=== PATIENT | female | born 1935 | race Caucasian/White ===

== ENCOUNTER → 2017-12-15 | Outpatient (CLI) | payer MEDICARE ==
[~2017-12-15] MED LIST: ACTONEL150 MG PO; ADULT LOW DOSE81 MG PO; AMITRIPTYLINE H10 M1 PO; ANASTROZOLE1 MG PO; ARIMIDEX PO; CRESTOR10 MG PO; KLOR-CON 1010 MEQ PO; MULTIVITAMIN PO; PREDNISONE 5 MG5 MG PO; SEE COMMENTS; SYNTHROID125 MCG PO; TRIAMTERENE-HC1 EAC1 PO
== END ==
LOC: M.WC 13:00
DX: T81.89XA Other complications of procedures, not elsewhere classified, initial encounter (principal); I87.2 Venous insufficiency (chronic) (peripheral); I10 Essential (primary) hypertension; I48.91 Unspecified atrial fibrillation; E03.9 Hypothyroidism, unspecified; G47.30 Sleep apnea, unspecified; Z96.611 Presence of right artificial shoulder joint; Z96.653 Presence of artificial knee joint, bilateral; Z89.421 Acquired absence of other right toe(s); Y92.89 Other specified places as the place of occurrence of the external cause; Y83.8 Other surgical procedures as the cause of abnormal reaction of the patient, or of later complication, without mention of misadventure at the time of the procedure

== ENCOUNTER → 2017-12-22 | Outpatient (CLI) | payer MEDICARE | LOC: M.WC 02:58 | DX: T81.89XD Other complications of procedures, not elsewhere classified, subsequent encounter (principal); I87.2 Venous insufficiency (chronic) (peripheral); I10 Essential (primary) hypertension; E03.9 Hypothyroidism, unspecified; I48.91 Unspecified atrial fibrillation; Z89.421 Acquired absence of other right toe(s); Y83.8 Other surgical procedures as the cause of abnormal reaction of the patient, or of later complication, without mention of misadventure at the time of the procedure ==

== ENCOUNTER → 2018-03-04 | Outpatient (CLI) | payer MEDICARE | LOC: M.WC 09:30 | DX: S41.112A Laceration without foreign body of left upper arm, initial encounter (principal); I10 Essential (primary) hypertension; I87.2 Venous insufficiency (chronic) (peripheral); E03.9 Hypothyroidism, unspecified; G47.30 Sleep apnea, unspecified; G62.9 Polyneuropathy, unspecified; I48.91 Unspecified atrial fibrillation; Z98.42 Cataract extraction status, left eye; Z98.41 Cataract extraction status, right eye; Z96.611 Presence of right artificial shoulder joint; Z89.421 Acquired absence of other right toe(s); Z96.653 Presence of artificial knee joint, bilateral; X58.XXXA Exposure to other specified factors, initial encounter; Y93.89 Activity, other specified; Y92.89 Other specified places as the place of occurrence of the external cause; Y99.8 Other external cause status ==

== ENCOUNTER → 2019-07-28 | Outpatient (CLI) | payer MEDICARE | LOC: M.WC 09:48 | DX: L97.822 Non-pressure chronic ulcer of other part of left lower leg with fat layer exposed (principal); I89.0 Lymphedema, not elsewhere classified; I87.2 Venous insufficiency (chronic) (peripheral); I48.20 Chronic atrial fibrillation, unspecified; I11.0 Hypertensive heart disease with heart failure; I50.9 Heart failure, unspecified; E03.9 Hypothyroidism, unspecified; G47.30 Sleep apnea, unspecified; G62.9 Polyneuropathy, unspecified; M35.3 Polymyalgia rheumatica; Z90.49 Acquired absence of other specified parts of digestive tract; Z79.82 Long term (current) use of aspirin; Z98.41 Cataract extraction status, right eye; Z98.42 Cataract extraction status, left eye; Z96.653 Presence of artificial knee joint, bilateral; Z96.611 Presence of right artificial shoulder joint; Z89.421 Acquired absence of other right toe(s) ==

== ENCOUNTER → 2019-08-04 | Outpatient (CLI) | payer MEDICARE | LOC: M.WC 05:07 | DX: L97.822 Non-pressure chronic ulcer of other part of left lower leg with fat layer exposed (principal); E03.9 Hypothyroidism, unspecified; G47.30 Sleep apnea, unspecified; G62.9 Polyneuropathy, unspecified; I87.2 Venous insufficiency (chronic) (peripheral); I89.0 Lymphedema, not elsewhere classified; I48.91 Unspecified atrial fibrillation; I11.0 Hypertensive heart disease with heart failure; I50.9 Heart failure, unspecified; I48.20 Chronic atrial fibrillation, unspecified; M35.3 Polymyalgia rheumatica; Z98.41 Cataract extraction status, right eye; Z98.42 Cataract extraction status, left eye; Z96.653 Presence of artificial knee joint, bilateral; Z96.611 Presence of right artificial shoulder joint ==

== ENCOUNTER → 2019-08-12 | Outpatient (CLI) | payer MEDICARE | LOC: M.WC 05:12 | DX: L97.822 Non-pressure chronic ulcer of other part of left lower leg with fat layer exposed (principal); I87.2 Venous insufficiency (chronic) (peripheral); I89.0 Lymphedema, not elsewhere classified; I48.91 Unspecified atrial fibrillation; I11.0 Hypertensive heart disease with heart failure; I50.9 Heart failure, unspecified; I48.20 Chronic atrial fibrillation, unspecified; E03.9 Hypothyroidism, unspecified; G47.30 Sleep apnea, unspecified; G62.9 Polyneuropathy, unspecified; H40.9 Unspecified glaucoma; M35.3 Polymyalgia rheumatica; Z98.41 Cataract extraction status, right eye; Z98.42 Cataract extraction status, left eye; Z96.653 Presence of artificial knee joint, bilateral; Z89.421 Acquired absence of other right toe(s); Z96.611 Presence of right artificial shoulder joint ==

== ENCOUNTER → 2019-08-22 | Outpatient (CLI) | payer MEDICARE | LOC: M.WC 01:35 | DX: I83.028 Varicose veins of left lower extremity with ulcer other part of lower leg (principal); L97.822 Non-pressure chronic ulcer of other part of left lower leg with fat layer exposed; I89.0 Lymphedema, not elsewhere classified; I87.2 Venous insufficiency (chronic) (peripheral); I11.0 Hypertensive heart disease with heart failure; I50.9 Heart failure, unspecified; E03.9 Hypothyroidism, unspecified; G47.30 Sleep apnea, unspecified; G62.9 Polyneuropathy, unspecified; I48.20 Chronic atrial fibrillation, unspecified; M35.3 Polymyalgia rheumatica; Z98.41 Cataract extraction status, right eye; Z98.42 Cataract extraction status, left eye; Z96.653 Presence of artificial knee joint, bilateral; Z96.611 Presence of right artificial shoulder joint; Z89.421 Acquired absence of other right toe(s) ==

== ENCOUNTER → 2019-08-26 | Outpatient (CLI) | payer MEDICARE | LOC: M.WC 05:51 | DX: I83.028 Varicose veins of left lower extremity with ulcer other part of lower leg (principal); L97.822 Non-pressure chronic ulcer of other part of left lower leg with fat layer exposed; I89.0 Lymphedema, not elsewhere classified; G47.30 Sleep apnea, unspecified; G62.9 Polyneuropathy, unspecified; I11.0 Hypertensive heart disease with heart failure; I50.9 Heart failure, unspecified; I48.20 Chronic atrial fibrillation, unspecified; E03.9 Hypothyroidism, unspecified; M35.3 Polymyalgia rheumatica; Z98.41 Cataract extraction status, right eye; Z98.42 Cataract extraction status, left eye; Z96.653 Presence of artificial knee joint, bilateral; Z96.611 Presence of right artificial shoulder joint; Z89.421 Acquired absence of other right toe(s) ==

== ENCOUNTER → 2019-09-02 | Outpatient (CLI) | payer MEDICARE | LOC: M.WC 05:13 | DX: I83.028 Varicose veins of left lower extremity with ulcer other part of lower leg (principal); L97.822 Non-pressure chronic ulcer of other part of left lower leg with fat layer exposed; I89.0 Lymphedema, not elsewhere classified; I48.20 Chronic atrial fibrillation, unspecified; I11.0 Hypertensive heart disease with heart failure; I50.9 Heart failure, unspecified; E03.9 Hypothyroidism, unspecified; G47.30 Sleep apnea, unspecified; G62.9 Polyneuropathy, unspecified; M35.3 Polymyalgia rheumatica; Z98.41 Cataract extraction status, right eye; Z98.42 Cataract extraction status, left eye; Z96.653 Presence of artificial knee joint, bilateral; Z96.611 Presence of right artificial shoulder joint; Z89.421 Acquired absence of other right toe(s) ==

== ENCOUNTER → 2019-09-09 | Outpatient (CLI) | payer MEDICARE | LOC: M.WC 04:57 | DX: I83.028 Varicose veins of left lower extremity with ulcer other part of lower leg (principal); L97.822 Non-pressure chronic ulcer of other part of left lower leg with fat layer exposed; I89.0 Lymphedema, not elsewhere classified; E03.9 Hypothyroidism, unspecified; G47.30 Sleep apnea, unspecified; G62.9 Polyneuropathy, unspecified; I11.0 Hypertensive heart disease with heart failure; I50.9 Heart failure, unspecified; M35.3 Polymyalgia rheumatica; I48.20 Chronic atrial fibrillation, unspecified; Z98.41 Cataract extraction status, right eye; Z98.42 Cataract extraction status, left eye; Z96.653 Presence of artificial knee joint, bilateral; Z96.611 Presence of right artificial shoulder joint; Z89.421 Acquired absence of other right toe(s) ==

== ENCOUNTER → 2019-09-16 | Outpatient (CLI) | payer MEDICARE | LOC: M.WC 11:00 | DX: I83.028 Varicose veins of left lower extremity with ulcer other part of lower leg (principal); L97.822 Non-pressure chronic ulcer of other part of left lower leg with fat layer exposed; I89.0 Lymphedema, not elsewhere classified; I11.0 Hypertensive heart disease with heart failure; I50.9 Heart failure, unspecified; I48.20 Chronic atrial fibrillation, unspecified; E03.9 Hypothyroidism, unspecified; G62.9 Polyneuropathy, unspecified; M35.3 Polymyalgia rheumatica; Z98.41 Cataract extraction status, right eye; Z98.42 Cataract extraction status, left eye; Z96.643 Presence of artificial hip joint, bilateral; Z96.611 Presence of right artificial shoulder joint; Z89.421 Acquired absence of other right toe(s) ==

== ENCOUNTER → 2019-09-23 | Outpatient (CLI) | payer MEDICARE | LOC: M.WC 10:08 | DX: I83.028 Varicose veins of left lower extremity with ulcer other part of lower leg (principal); L97.822 Non-pressure chronic ulcer of other part of left lower leg with fat layer exposed; I87.2 Venous insufficiency (chronic) (peripheral); I89.0 Lymphedema, not elsewhere classified; G62.9 Polyneuropathy, unspecified; E03.9 Hypothyroidism, unspecified; I11.0 Hypertensive heart disease with heart failure; I50.9 Heart failure, unspecified; I48.91 Unspecified atrial fibrillation; I48.20 Chronic atrial fibrillation, unspecified; H26.9 Unspecified cataract; G47.30 Sleep apnea, unspecified; Z98.41 Cataract extraction status, right eye; Z98.42 Cataract extraction status, left eye; Z96.653 Presence of artificial knee joint, bilateral; Z89.421 Acquired absence of other right toe(s) ==

== ENCOUNTER → 2019-09-30 | Outpatient (CLI) | payer MEDICARE | LOC: M.WC 04:09 | DX: I83.028 Varicose veins of left lower extremity with ulcer other part of lower leg (principal); L97.822 Non-pressure chronic ulcer of other part of left lower leg with fat layer exposed; L03.116 Cellulitis of left lower limb; I89.0 Lymphedema, not elsewhere classified; I87.2 Venous insufficiency (chronic) (peripheral); I11.0 Hypertensive heart disease with heart failure; I50.9 Heart failure, unspecified; I48.20 Chronic atrial fibrillation, unspecified; E03.9 Hypothyroidism, unspecified; G47.30 Sleep apnea, unspecified; G62.9 Polyneuropathy, unspecified; M35.3 Polymyalgia rheumatica; Z98.41 Cataract extraction status, right eye; Z98.42 Cataract extraction status, left eye; Z96.653 Presence of artificial knee joint, bilateral; Z89.421 Acquired absence of other right toe(s); Z96.611 Presence of right artificial shoulder joint ==

== ENCOUNTER → 2019-10-06 | Outpatient (CLI) | payer MEDICARE | LOC: M.WC 13:30 | DX: I83.028 Varicose veins of left lower extremity with ulcer other part of lower leg (principal); L97.822 Non-pressure chronic ulcer of other part of left lower leg with fat layer exposed; L03.116 Cellulitis of left lower limb; I89.0 Lymphedema, not elsewhere classified; E03.9 Hypothyroidism, unspecified; G47.30 Sleep apnea, unspecified; G62.9 Polyneuropathy, unspecified; I11.0 Hypertensive heart disease with heart failure; I50.9 Heart failure, unspecified; I48.20 Chronic atrial fibrillation, unspecified; M35.3 Polymyalgia rheumatica; Z98.42 Cataract extraction status, left eye; Z96.653 Presence of artificial knee joint, bilateral; Z96.611 Presence of right artificial shoulder joint; Z89.421 Acquired absence of other right toe(s); Z98.41 Cataract extraction status, right eye ==

== ENCOUNTER → 2019-10-17 | Outpatient (CLI) | payer MEDICARE | LOC: M.WC 01:56 | DX: I83.028 Varicose veins of left lower extremity with ulcer other part of lower leg (principal); L97.822 Non-pressure chronic ulcer of other part of left lower leg with fat layer exposed; L03.116 Cellulitis of left lower limb; E03.9 Hypothyroidism, unspecified; G47.30 Sleep apnea, unspecified; G62.9 Polyneuropathy, unspecified; I89.0 Lymphedema, not elsewhere classified; I11.0 Hypertensive heart disease with heart failure; I50.9 Heart failure, unspecified; I48.20 Chronic atrial fibrillation, unspecified; M35.3 Polymyalgia rheumatica; Z98.41 Cataract extraction status, right eye; Z98.42 Cataract extraction status, left eye; Z96.643 Presence of artificial hip joint, bilateral; Z89.421 Acquired absence of other right toe(s); Z96.611 Presence of right artificial shoulder joint ==

== ENCOUNTER → 2019-10-21 | Outpatient (CLI) | payer MEDICARE | LOC: M.WC 05:19 | DX: I83.028 Varicose veins of left lower extremity with ulcer other part of lower leg (principal); L97.822 Non-pressure chronic ulcer of other part of left lower leg with fat layer exposed; L03.116 Cellulitis of left lower limb; E03.9 Hypothyroidism, unspecified; G47.30 Sleep apnea, unspecified; G62.9 Polyneuropathy, unspecified; I89.0 Lymphedema, not elsewhere classified; I11.0 Hypertensive heart disease with heart failure; I50.9 Heart failure, unspecified; I48.20 Chronic atrial fibrillation, unspecified; M35.3 Polymyalgia rheumatica; Z98.41 Cataract extraction status, right eye; Z98.42 Cataract extraction status, left eye; Z96.653 Presence of artificial knee joint, bilateral; Z96.611 Presence of right artificial shoulder joint ==

== ENCOUNTER → 2019-10-28 | Outpatient (CLI) | payer MEDICARE | LOC: M.WC 05:14 | DX: I83.028 Varicose veins of left lower extremity with ulcer other part of lower leg (principal); L97.822 Non-pressure chronic ulcer of other part of left lower leg with fat layer exposed; L03.116 Cellulitis of left lower limb; E03.9 Hypothyroidism, unspecified; G47.30 Sleep apnea, unspecified; G62.9 Polyneuropathy, unspecified; I11.0 Hypertensive heart disease with heart failure; I50.9 Heart failure, unspecified; I48.20 Chronic atrial fibrillation, unspecified; M35.3 Polymyalgia rheumatica; Z98.41 Cataract extraction status, right eye; Z98.42 Cataract extraction status, left eye; Z96.653 Presence of artificial knee joint, bilateral; Z96.611 Presence of right artificial shoulder joint; Z89.421 Acquired absence of other right toe(s) ==

== ENCOUNTER → 2019-11-04 | Outpatient (CLI) | payer MEDICARE | LOC: M.WC 03:58 | DX: I83.028 Varicose veins of left lower extremity with ulcer other part of lower leg (principal); L97.822 Non-pressure chronic ulcer of other part of left lower leg with fat layer exposed; L03.116 Cellulitis of left lower limb; E03.9 Hypothyroidism, unspecified; G47.30 Sleep apnea, unspecified; G62.9 Polyneuropathy, unspecified; I11.0 Hypertensive heart disease with heart failure; I50.9 Heart failure, unspecified; I89.0 Lymphedema, not elsewhere classified; I48.20 Chronic atrial fibrillation, unspecified; M35.3 Polymyalgia rheumatica; Z98.41 Cataract extraction status, right eye; Z98.42 Cataract extraction status, left eye; Z96.653 Presence of artificial knee joint, bilateral; Z96.611 Presence of right artificial shoulder joint; Z89.421 Acquired absence of other right toe(s) ==

== ENCOUNTER → 2019-11-11 | Outpatient (CLI) | payer MEDICARE | LOC: M.WC 03:36 | DX: I83.028 Varicose veins of left lower extremity with ulcer other part of lower leg (principal); L97.822 Non-pressure chronic ulcer of other part of left lower leg with fat layer exposed; L03.116 Cellulitis of left lower limb; I89.0 Lymphedema, not elsewhere classified; I48.20 Chronic atrial fibrillation, unspecified; E03.9 Hypothyroidism, unspecified; G47.30 Sleep apnea, unspecified; G62.9 Polyneuropathy, unspecified; I48.91 Unspecified atrial fibrillation; I11.0 Hypertensive heart disease with heart failure; I50.9 Heart failure, unspecified; M35.3 Polymyalgia rheumatica; Z98.41 Cataract extraction status, right eye; Z98.42 Cataract extraction status, left eye; Z96.653 Presence of artificial knee joint, bilateral; Z96.611 Presence of right artificial shoulder joint; Z89.421 Acquired absence of other right toe(s) ==

== ENCOUNTER → 2019-11-18 | Outpatient (CLI) | payer MEDICARE | LOC: M.WC 04:04 | DX: I83.028 Varicose veins of left lower extremity with ulcer other part of lower leg (principal); L97.828 Non-pressure chronic ulcer of other part of left lower leg with other specified severity; L03.116 Cellulitis of left lower limb; E03.9 Hypothyroidism, unspecified; G47.30 Sleep apnea, unspecified; G62.9 Polyneuropathy, unspecified; I11.0 Hypertensive heart disease with heart failure; I50.9 Heart failure, unspecified; I89.0 Lymphedema, not elsewhere classified; I48.20 Chronic atrial fibrillation, unspecified; M35.3 Polymyalgia rheumatica; Z98.41 Cataract extraction status, right eye; Z98.42 Cataract extraction status, left eye; Z96.653 Presence of artificial knee joint, bilateral; Z96.611 Presence of right artificial shoulder joint; Z89.421 Acquired absence of other right toe(s) ==

== ENCOUNTER → 2020-02-16 | Outpatient (CLI) | payer MEDICARE | LOC: M.WC 04:26 | DX: I83.018 Varicose veins of right lower extremity with ulcer other part of lower leg (principal); L97.811 Non-pressure chronic ulcer of other part of right lower leg limited to breakdown of skin; I87.2 Venous insufficiency (chronic) (peripheral); E03.9 Hypothyroidism, unspecified; G62.9 Polyneuropathy, unspecified; I48.91 Unspecified atrial fibrillation; I11.0 Hypertensive heart disease with heart failure; I50.9 Heart failure, unspecified; H26.9 Unspecified cataract; G47.30 Sleep apnea, unspecified; Z79.01 Long term (current) use of anticoagulants; Z98.41 Cataract extraction status, right eye; Z98.42 Cataract extraction status, left eye; Z96.611 Presence of right artificial shoulder joint; Z89.421 Acquired absence of other right toe(s); Z96.653 Presence of artificial knee joint, bilateral; Z90.49 Acquired absence of other specified parts of digestive tract ==

== ENCOUNTER → 2020-02-23 | Outpatient (CLI) | payer MEDICARE | LOC: M.WC 03:52 | DX: I83.018 Varicose veins of right lower extremity with ulcer other part of lower leg (principal); L97.811 Non-pressure chronic ulcer of other part of right lower leg limited to breakdown of skin; I11.0 Hypertensive heart disease with heart failure; I50.9 Heart failure, unspecified; I48.91 Unspecified atrial fibrillation; G47.30 Sleep apnea, unspecified; E03.9 Hypothyroidism, unspecified; M35.3 Polymyalgia rheumatica; G62.9 Polyneuropathy, unspecified; H26.9 Unspecified cataract; Z98.42 Cataract extraction status, left eye; Z98.41 Cataract extraction status, right eye; Z96.611 Presence of right artificial shoulder joint; Z96.653 Presence of artificial knee joint, bilateral; Z89.421 Acquired absence of other right toe(s) ==

== ENCOUNTER → 2020-03-01 | Outpatient (CLI) | payer MEDICARE | LOC: M.WC 05:02 | PROVIDERS: ATTEND Family Medicine | DX: I83.018 Varicose veins of right lower extremity with ulcer other part of lower leg (principal); L97.811 Non-pressure chronic ulcer of other part of right lower leg limited to breakdown of skin; E03.9 Hypothyroidism, unspecified; G47.30 Sleep apnea, unspecified; G62.9 Polyneuropathy, unspecified; H26.9 Unspecified cataract; I11.0 Hypertensive heart disease with heart failure; I50.9 Heart failure, unspecified; I48.91 Unspecified atrial fibrillation; M35.3 Polymyalgia rheumatica; Z98.41 Cataract extraction status, right eye; Z98.42 Cataract extraction status, left eye; Z96.653 Presence of artificial knee joint, bilateral; Z96.611 Presence of right artificial shoulder joint; Z89.421 Acquired absence of other right toe(s); Z90.49 Acquired absence of other specified parts of digestive tract ==

== ENCOUNTER → 2020-03-16 | Outpatient (CLI) | payer MEDICARE | LOC: M.WC 03:43 | PROVIDERS: ATTEND Family Medicine | DX: I83.018 Varicose veins of right lower extremity with ulcer other part of lower leg (principal); L97.818 Non-pressure chronic ulcer of other part of right lower leg with other specified severity; I11.0 Hypertensive heart disease with heart failure; I50.9 Heart failure, unspecified; I87.2 Venous insufficiency (chronic) (peripheral); E03.9 Hypothyroidism, unspecified; G62.9 Polyneuropathy, unspecified; I48.91 Unspecified atrial fibrillation; H26.9 Unspecified cataract; G47.30 Sleep apnea, unspecified; Z79.01 Long term (current) use of anticoagulants; Z98.41 Cataract extraction status, right eye; Z98.42 Cataract extraction status, left eye; Z96.611 Presence of right artificial shoulder joint; Z89.421 Acquired absence of other right toe(s); Z96.653 Presence of artificial knee joint, bilateral ==

== ENCOUNTER → 2020-06-07 | Outpatient (CLI) | payer MEDICARE | LOC: M.WC 08:32 | PROVIDERS: ATTEND Family Medicine | DX: I83.028 Varicose veins of left lower extremity with ulcer other part of lower leg (principal); L97.821 Non-pressure chronic ulcer of other part of left lower leg limited to breakdown of skin; E03.9 Hypothyroidism, unspecified; G47.30 Sleep apnea, unspecified; G62.9 Polyneuropathy, unspecified; H26.9 Unspecified cataract; I48.91 Unspecified atrial fibrillation; I11.0 Hypertensive heart disease with heart failure; I50.9 Heart failure, unspecified; M35.3 Polymyalgia rheumatica; Z90.49 Acquired absence of other specified parts of digestive tract; Z98.41 Cataract extraction status, right eye; Z98.42 Cataract extraction status, left eye; Z96.653 Presence of artificial knee joint, bilateral; Z96.611 Presence of right artificial shoulder joint; Z89.421 Acquired absence of other right toe(s) ==

== ENCOUNTER → 2020-06-14 | Outpatient (CLI) | payer MEDICARE | LOC: M.WC 04:50 | PROVIDERS: ATTEND Family Medicine | DX: S81.812D Laceration without foreign body, left lower leg, subsequent encounter (principal); E03.9 Hypothyroidism, unspecified; G47.30 Sleep apnea, unspecified; G62.9 Polyneuropathy, unspecified; I11.0 Hypertensive heart disease with heart failure; I50.9 Heart failure, unspecified; I87.2 Venous insufficiency (chronic) (peripheral); I89.0 Lymphedema, not elsewhere classified; I48.91 Unspecified atrial fibrillation; I83.90 Asymptomatic varicose veins of unspecified lower extremity; M35.3 Polymyalgia rheumatica; Z98.41 Cataract extraction status, right eye; Z98.42 Cataract extraction status, left eye; Z96.653 Presence of artificial knee joint, bilateral; Z96.611 Presence of right artificial shoulder joint; Z89.421 Acquired absence of other right toe(s); W19.XXXD Unspecified fall, subsequent encounter ==